=== PATIENT | male | born 1945 | race African-American/Black ===

== ENCOUNTER 2017-07-08 17:36 | Inpatient (IN) | payer OTHER ==
[~2017-07-08] VITALS: Ht 165.1 cm; Wt 122.5 kg
[2017-07-08 18:22] LABS: PROTHROMBIN TIME 10.7 sec (9.4-11.6)
[2017-07-08 18:23] LABS: BASOPHILS % 1.2 % (0.0-2.0); HEMATOCRIT. 39.2 % (42.0-52.0); LYMPHOCYTES % 31.9 % (20.0-50.0); MEAN CORPUSCULAR HEMOGLOBIN 29.3 pg (28.0-32.0); MEAN CORPUSCULAR VOLUME 88.3 fL (80.0-94.0); MEAN PLATELET VOLUME 8.7 fl (7.4-10.4); NEUTROPHILS % 47.9 % (40.0-76.0); PLATELET 202 x1000/uL (130-400); RED BLOOD CELL COUNT 4.44 mill/uL (4.7-6.1); RED CELL DISTRIBUTION WIDTH 14.8 % (11.6-14.6)
[2017-07-08 18:32] LABS: CHLORIDE 108 mEq/L (98-107); ETHANOL BLOOD < 10 mg/dL
[2017-07-08] MEDS ORDERED: ASPIRIN 325MG EC TABLET PO ONE (20:00)
[2017-07-08] MEDS ORDERED: DIPHENHYDRAMINE 50MG/ML VIAL IV PRN (20:45)
[2017-07-08] MEDS ORDERED: ACETAMINOPHEN 325MG TABLET PO PRN (20:45)
[2017-07-08] MEDS ORDERED: GUAIFENESIN 200MG/10ML SUGAR FREE UDC PO PRN (20:45)
[2017-07-08] MEDS ORDERED: HYDROCODONE/ACETAMINOPHEN 5/325MG TABLET PO PRN (20:45)
[2017-07-08] MEDS ORDERED: ACETAMINOPHEN 650MG/20.3ML UDC GT PRN (20:45)
[2017-07-08] MEDS ORDERED: ACETAMINOPHEN 650MG SUPP PR PRN (20:45)
[2017-07-08] MEDS ORDERED: ONDANSETRON HCL 4MG/2ML INJ IV PRN (20:45)
[2017-07-08] MEDS ORDERED: MAGNESIUM/ALUMINUM HYDROXIDE/SIMETHICONE 30ML UDC PO PRN (20:45)
[2017-07-08] MEDS ORDERED: DOCUSATE SODIUM 100MG CAPSULE PO PRN (20:45)
[2017-07-08] MEDS ORDERED: NA PHOS,M-B/NA PHOS,DI-BA ENEMA 118ML PR PRN (20:45)
[2017-07-08] MEDS ORDERED: IPRATROPIUM/ALBUTEROL 0.5-3(2.5)MG/3ML NEB INH PRN (20:45)
[2017-07-09] VITALS (7 sets, daily range): BP systolic 137–185; BP diastolic 73–95
[2017-07-09] MEDS ORDERED: LISI40TA4 PO (00:16)
[2017-07-09] MEDS ORDERED: CYAN10009 PO (01:15)
[2017-07-09] MEDS ORDERED: GLIP5TAB12 PO (01:15)
[2017-07-09] MEDS ORDERED: ASPI-1159 PO (01:15)
[2017-07-09] MEDS ORDERED: ATOR-2 PO (01:15)
[2017-07-09] MEDS: CLONIDINE 0.1MG TABLET PO PRN (04:09)
[2017-07-09 06:43] LABS: EOSINOPHILS % 6.8 % (0.0-5.0); HEMATOCRIT. 37.8 % (42.0-52.0); HEMOGLOBIN. 12.2 g/dL (14.0-18.0); MEAN CORPUSCULAR HEMOGLOBIN 28.6 pg (28.0-32.0); MEAN CORPUSCULAR VOLUME 88.1 fL (80.0-94.0); MONOCYTES % 6.2 % (2.0-8.0); PLATELET 194 x1000/uL (130-400); RED BLOOD CELL COUNT 4.28 mill/uL (4.7-6.1); RED CELL DISTRIBUTION WIDTH 14.7 % (11.6-14.6)
[2017-07-09] MEDS: SODIUM CHLORIDE 0.9% INJ 3ML FLUSH IVF SCH ×3 (06:54→22:21)
[2017-07-09 07:00] LABS: CHLORIDE 107 mEq/L (98-107)
[2017-07-09 07:05] LABS: HDL CHOLESTEROL 46 mg/dL (40-59); LDL CHOLESTEROL 89 mg/dL (5-100)
[2017-07-09] MEDS ORDERED: ENOXAPARIN 40MG/0.4ML SYR SUBCUT SCH (09:00)
[2017-07-09] MEDS ORDERED: ENOXAPARIN 30MG/0.3ML SYR SUBCUT SCH (09:00)
[2017-07-09] MEDS: ASPIRIN 325MG EC TABLET PO SCH (09:03)
[2017-07-09 10:51] LABS: CLARITY URINE CLEAR (CLEAR); COLOR URINE YELLOW (YELLOW); KETONES URINE NEGATIVE (NEGATIVE); LEUKOCYTE ESTERASE URINE NEGATIVE (NEGATIVE); NITRITE URINE NEGATIVE (NEGATIVE); OCCULT BLOOD URINE NEGATIVE (NEGATIVE); PROTEIN URINE NEGATIVE (NEGATIVE); SPECIFIC GRAVITY URINE 1.013 (1.005-1.030)
[2017-07-09 11:22] LABS: *AMPHETAMINES SCREEN URINE NEGATIVE (NEGATIVE); *BARBITURATES SCREEN URINE NEGATIVE (NEGATIVE); *BENZODIAZEPINES SCREEN URINE NEGATIVE (NEGATIVE); *COCAINE SCREEN URINE NEGATIVE (NEGATIVE); CANNABINOID URINE SCREEN NEGATIVE (NEGATIVE); METHADONE URINE SCREEN NEGATIVE (NEGATIVE); OPIATES URINE SCREEN NEGATIVE (NEGATIVE); PHENCYCLIDINE URINE SCREEN NEGATIVE (NEGATIVE)
[2017-07-09] MEDS: HALOPERIDOL LACTATE 5MG/ML VIAL IM PRN (19:18)
[2017-07-09] MEDS ORDERED: HALOPERIDOL LACTATE 5MG/ML VIAL IM NR (21:00)
[2017-07-09] MEDS: ENOXAPARIN 30MG/0.3ML SYR SUBCUT SCH (22:25)
[2017-07-10] VITALS (7 sets, daily range): BP systolic 132–166; BP diastolic 72–96
[2017-07-10] MEDS: HALOPERIDOL LACTATE 5MG/ML VIAL IM PRN ×2 (05:11→14:47)
[2017-07-10] MEDS: SODIUM CHLORIDE 0.9% INJ 3ML FLUSH IVF SCH ×2 (05:15→14:11)
[2017-07-10] MEDS: ENOXAPARIN 30MG/0.3ML SYR SUBCUT SCH (09:07)
[2017-07-10] MEDS: ASPIRIN 325MG EC TABLET PO SCH (09:07)
[2017-07-10] MEDS: CLONIDINE 0.1MG TABLET PO PRN (15:33)
[2017-07-10] MEDS ORDERED: GLIPIZIDE 5MG TABLET PO SCH (15:45)
[2017-07-10] MEDS ORDERED: LISINOPRIL 40MG TABLET PO SCH (15:45)
[2017-07-10] MEDS ORDERED: PANTOPRAZOLE 40MG DR TABLET PO SCH (15:45)
[2017-07-10] MEDS ORDERED: ATORVASTATIN CALCIUM 40MG TABLET PO SCH (21:00)
[2017-07-11] MEDS ORDERED: ASPIRIN 81MG EC TABLET PO SCH (09:00)
== END 2017-07-10 19:17 | disposition short-term general hospital (02) | DRG 71 ==
LOC: ER 17:41 → EDBEDREQ 18:59 → 5WST 19:53 → EDBEDREQ 20:04 → ENRESERV 23:07 → 5WST 07-09 19:15
PROVIDERS: ADMIT Family Medicine; ATTEND Family Medicine
DX: G93.40 Encephalopathy, unspecified (principal); G45.9 Transient cerebral ischemic attack, unspecified; E11.65 Type 2 diabetes mellitus with hyperglycemia; D64.9 Anemia, unspecified; E11.9 Type 2 diabetes mellitus without complications; I10 Essential (primary) hypertension
CPT/HCPCS: 36415; 70551; 71045; 80061; 80305; 82962; 83605; 83880; 84484; 86850; 86900; 93005; 93306; 99285; G0482; J1200; J1630; J1650